=== PATIENT | female | born 2000 | race Caucasian/White ===

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

== ENCOUNTER → 2020-07-02 | Outpatient (CLI) | payer MEDICAID ==
--- NOTE | 2020-07-02 16:54 | RADIOLOGY REPORT (SQ) ---
EXAM DESCRIPTION: FINGERS RIGHT IMAGES COMPLETED DATE/TIME: 07/02/2020 4:43 pm REASON FOR STUDY: PAIN IN RIGHT 4TH DIGIT M79.644 PAIN IN RIGHT FINGER(S) COMPARISON: None. NUMBER OF VIEWS: Three views. TECHNIQUE: AP, lateral, and oblique images acquired of the right fourth finger. LIMITATIONS: None. FINDINGS: MINERALIZATION: Normal. BONES: Displaced fracture at the base of the distal phalanx with angulation. No worrisome bone lesio ns. SOFT TISSUES: No soft tissue swelling. No foreign body. OTHER: No other significant finding. IMPRESSION: DISPLACED FRACTURE AT THE BASE OF THE DISTAL PHALANX OF THE RIGHT 4TH FINGER. COMMENT: SITE OF TRAUMA/COMPLAINT MARKED/STAMP COMPLETED: YES. TECHNICAL DOCUMENTATION: JOB ID: [id number] 2010 [employer]- All Rights Reserved Reading location - IP/workstation name: [email or web address]
== END ==
LOC: OD 16:23
PROVIDERS: ATTEND Nurse Practitioner Family
DX: S62.638A Displaced fracture of distal phalanx of other finger, initial encounter for closed fracture (principal); X58.XXXA Exposure to other specified factors, initial encounter

== ENCOUNTER 2020-08-06 18:09 | Emergency (ER) | payer MEDICAID ==
--- NOTE | 2020-08-06 19:56 | ER Document Report ---
ED Medical Screen (RME) - General Chief Complaint: Finger Injury Stated Complaint: HAND PAIN Time Seen by Provider: 08/06/20 19:49 Primary Care Provider: HANS GOODRICH FNP [Primary Care Provider] - Follow up as needed TRAVEL OUTSIDE OF THE [place] IN LAST 30 DAYS: No - HPI Notes: 08/06/20 19:54 19-year-old female presents to the emergency room today for evaluation of right fourth finger pain after she hit it against a hard object, she states she moved with the pins in her distal phalanx. Patient had surgery on 07/08/2020 by [facility] after she fractured her right fourth distal phalanx sockets, she has pins in place. She states that pins have moved and she is in severe pain. She did take 2 of the [place] that were prescribed to her from her surgery. Patient states Dr. Pearl, Francie, was the one who did her surgery in [place]. Denies any other area of injury I have greeted and performed a rapid initial assessment of this patient. A comprehensive ED assessment and evaluation of the patient, analysis of test results and completion of the medical decision making process will be conducted by additional ED providers. PHYSICAL EXAMINATION: GENERAL: Well-appearing, well-nourished and in no acute distress. CV: s1, s2 regular LUNGS: No respiratory distress Musculoskeletal: Normal range of motion. Right fourth distal phalanx with erythema and healing scar on volar aspect, [address] Cap refill less than 3 seconds. Unable to bend at DIP NEUROLOGICAL: Normal speech, normal gait. SKIN: Warm, Dry, normal turgor, no rashes or lesions noted. - Related Data Allergies/Adverse Reactions: No Known Allergies Allergy (Verified 08/06/20 19:46) Home Medications: TRAMADOL Past Medical History - Social History Frequency of alcohol use: None Drug Abuse: Marijuana - Past Medical History Cardiac Medical History: Denies: Hx Coronary Artery Disease, Hx Heart Attack, Hx Hypertension Pulmonary Medical History: Reports: Hx Asthma - A CHILD Denies: Hx Bronchitis, Hx COPD, Hx Pneumonia Neurological Medical History: Denies: Hx Cerebrovascular Accident, Hx Seizures Renal/ Medical History: Denies: Hx Peritoneal Dialysis Musculoskeltal Medical History: Denies Hx Arthritis Past Surgical History: Denies: Hx Hysterectomy - Immunizations Hx Diphtheria, Pertussis, Tetanus Vaccination: Yes Physical Exam - Vital signs Vitals: Temp Pulse Resp BP Pulse Ox 98.2 F 57 L 20 150/67 H 99 08/06/20 18:24 08/06/20 18:24 08/06/20 18:24 08/06/20 18:24 08/06/20 18:24 Course - Vital Signs Vital signs: Temp Pulse Resp BP Pulse Ox 98.2 F 57 L 20 150/67 H 99 08/06/20 18:24 08/06/20 18:24 08/06/20 18:24 08/06/20 18:24 08/06/20 18:24 Doctor's Discharge - Discharge Referrals: HANS GOODRICH FNP [Primary Care Provider] - Follow up as needed
--- NOTE | 2020-08-06 21:22 | RADIOLOGY REPORT (SQ) ---
XR FINGERS CLINICAL STATEMENT: hit finger, pins in finger moved, had surgery 07/08 COMPARISON: 07/02/2020 FINDINGS: Left fourth digit surgical fixation hardware. This fixates a 4th distal phalanx fracture seen on the prior study. Bony alignment is improved from the prior study. IMPRESSION: Fourth digit surgical fixation hardware in place.
--- NOTE | 2020-08-06 22:19 | ER Document Report ---
ED General - General Chief Complaint: Finger Injury Stated Complaint: HAND PAIN Time Seen by Provider: 08/06/20 19:49 Primary Care Provider: HANS GOODRICH FNP [Primary Care Provider] - Follow up as needed Mode of Arrival: Ambulatory Information source: Patient Notes: This 19-year-old woman presents to the emergency department with a complaint of injury to the left ring finger. Apparently she has 2 pins placed in the finger as a fixation for fracture in the distal phalanx. Patient states she accidentally hit the pin today and thinks that it may have been driven deeper into her tissues. She complains of pain and has been taking [place] for pain. She has no other associated complaints. TRAVEL OUTSIDE OF THE [place] IN LAST 30 DAYS: No - Related Data Allergies/Adverse Reactions: No Known Allergies Allergy (Verified 08/06/20 19:46) Home Medications: TRAMADOL Past Medical History - Social History Smoking Status: Current Every Day Smoker Frequency of alcohol use: None Drug Abuse: Marijuana Family History: Reviewed & Not Pertinent - Past Medical History Cardiac Medical History: Denies: Hx Coronary Artery Disease, Hx Heart Attack, Hx Hypertension Pulmonary Medical History: Reports: Hx Asthma - A CHILD Denies: Hx Bronchitis, Hx COPD, Hx Pneumonia Neurological Medical History: Denies: Hx Cerebrovascular Accident, Hx Seizures Renal/ Medical History: Denies: Hx Peritoneal Dialysis Musculoskeletal Medical History: Denies Hx Arthritis Past Surgical History: Reports: Hx Orthopedic Surgery - right 4th digit surgery. Denies: Hx Hysterectomy - Immunizations Hx Diphtheria, Pertussis, Tetanus Vaccination: Yes Review of Systems - Review of Systems Notes: Constitutional: Negative for fever. HENT: Negative for sore throat. Eyes: Negative for visual changes. Cardiovascular: Negative for chest pain. Respiratory: Negative for shortness of breath. Gastrointestinal: Negative for abdominal pain, vomiting or diarrhea. Genitourinary: Negative for dysuria. Musculoskeletal: See HPI Skin: Negative for rash. Neurological: Negative for headaches, weakness or numbness. 10 point ROS negative except as marked above and in HPI. Physical Exam - Vital signs Vitals: Temp Pulse Resp BP Pulse Ox 98.2 F 57 L 20 150/67 H 99 08/06/20 18:24 08/06/20 18:24 08/06/20 18:24 08/06/20 18:24 08/06/20 18:24 - Notes Notes: PHYSICAL EXAMINATION: Physical Exam: General: Well-nourished well-developed 19-year-old female in no acute distress HEENT: NC/AT, pupils equal round and reactive to light, MM moist,nares clear, oropharynx clear, airway patent Neck: supple, no adenopathy, no masses. Good range of motion Lungs: clear, no wheezing, no rales no rhonchi CVS: Regular rate and rhythm no murmur gallop or rub Abdomen: Soft, active, nontender, no masses, no hepatosplenomegaly Ext: Left index finger with fixation pins in place. No marked deformity noted at the fixation site. There is no active bleeding. Neurologically is grossly intact. Neuro: Alert and responsive, moving all 4 extremities on command, cranial nerves intact, no focal findings Skin: Intact no open lesions, no rash PSYCH: Normal mood, normal affect. Course - Re-evaluation Re-evalutation: 08/06/20 22:17 An x-ray was performed of the left fourth finger and the patient was found to have fixation pins in place with no disruption of the fixation. - Vital Signs Vital signs: Temp Pulse Resp BP Pulse Ox 97.7 F 70 16 134/70 H 100 08/06/20 22:41 08/06/20 22:41 08/06/20 22:41 08/06/20 22:41 08/06/20 22:41 - Laboratory Results Critical Laboratory Results Reviewed: No Critical Results Attending or Supervising Physician who Reviewed Labs: MERY JACKSON - Radiology Results Radiology Results Interpreted: 08/06/20 22:19 Finger X-Ray 08/06/20 19:52 IMPRESSION: Fourth digit surgical fixation hardware in place. Critical Radiology Results Reviewed: No Critical Results Attending or Supervising Physician who Reviewed Radiology: MERY JACKSON Discharge - Discharge Clinical Impression: Broken bone fixation device Fracture of phalanx of left ring finger Qualifiers: Encounter type: subsequent encounter Fracture type: closed Phalanx: distal Fracture alignment: nondisplaced Fracture healing: with routine healing Qualified Code(s): S62.665D - Nondisplaced fracture of distal phalanx of left ring finger, subsequent encounter for fracture with routine healing Condition: Good Disposition: HOME, SELF-CARE Instructions: Fractured Finger ([facility]) Additional Instructions: You were seen in the emergency department due to a injury to the fixation pin involving your left fourth finger. The fixation device is not broken and is not on the line. You may follow-up with your orthopedist as needed. Please wear your splint and you may supplement ibuprofen or Tylenol for pain control. HOME CARE INSTRUCTIONS & INFORMATION: Thank you for choosing us for your medical needs. We hope you're satisfied with the care you received. After you leave, you must properly care for your problem and, at the same time, observe its progress. Any condition can change. Some illnesses can change rapidly over hours or days. If your condition worsens, return to the Emergency Department or see your physician promptly. ABOUT YOUR X-RAYS AND EKG'S: If you had an EKG or X-rays taken, they have been read by the Emergency Physician. The X-rays and EKG's will also be read by a Radiologist or Project Systems Engineer within 24 hours. If discrepancies are noted, you will be notified by telephone. Please be certain the ED has a correct telephone number & address where you can be reached. Also, realize that some fractures or abnormalities do not show up on initial X-rays. If your symptoms continue, see your physician. ABOUT YOUR LABORATORY TEST: If you had laboratory tests, the results have been reviewed by the Emergency Physician. Some test results (for example cultures) may not be available for several days. You will be contacted if any test result shows you need additional treatment. Please be certain the ED has a correct telephone number and address where you can be reached. ABOUT YOUR MEDICATIONS: You will receive instructions on how to take your medicine on the prescription label you receive. Additional information may be provided by the Pharmacy. If you have questions afterwards, call the ED for clarification or further instructions. Some prescribed medications may cause drowsiness. Do not perform tasks such as driving a car or operating machinery without consulting your Pharmacist. If you feel you need a refill of pain medication, your condition will need re-evaluation. Please do not call for a refill of any medication. ABOUT YOUR SIGNATURE: Signature of this document acknowledges to followin. Understanding that you received emergency treatment and that you may be released before al medical problems are known or treated. Please be certain the ED has a correct phone number & address where you can be reached. 2. Acknowledgement that you will arrange for follow-up care as recommended. 3. Authorization for the Emergency Physician to provide information to your follow-up Physician in order to maximize your care. AT ANY TIME, IF YOUR SYMPTOMS CHANGE SIGNIFICANTLY OR WORSEN OR YOU DEVELOP NEW SYMPTOMS, RETURN TO THE EMERGENCY DEPARTMENT IMMEDIATELY FOR RE-EVALUATION. OUR GOAL IS TO PROVIDE EXCELLENT MEDICAL CARE! WE HOPE THAT WE HAVE MET YOUR EXPECTATIONS DURING YOUR EMERGENCY DEPARTMENT VISIT AND THAT YOU FEEL YOU HAVE RECEIVED EXCELLENT CARE! Referrals: HANS GOODRICH FNP [Primary Care Provider] - Follow up as needed
[2020-08-06] MEDS ORDERED: HYDROCODONE/ACETAMINOPHEN 5-325 MG (6 TAB/ER DISP) PO PRN (22:31)
[2020-08-06 22:42] VITALS: BP 134/70
== END 2020-08-06 22:41 | disposition home or self-care (01) ==
LOC: ER 18:09
DX: S62.665D Nondisplaced fracture of distal phalanx of left ring finger, subsequent encounter for fracture with routine healing (principal); X58.XXXD Exposure to other specified factors, subsequent encounter; F17.200 Nicotine dependence, unspecified, uncomplicated
CPT/HCPCS: 99283